=== PATIENT | male | born 1965 | race Caucasian/White ===

== ENCOUNTER → 2017-04-03 | Day surgery (SDC) | payer OTHER ==
[~2017-04-03] VITALS: Ht 185.4 cm; Wt 113.4 kg
--- NOTE | ~2017-04-03 | O ---
[place], [place] OPERATIVE NOTE NAME: REDD RIVAS UNIT #: [id number] ROOM: DOCTOR: BLANCA HAYNES MD BIRTHDATE: [birth year] DOS: GASTROENDOSCOPIC REPORT INDICATION: A 52-year-old patient who presented with chief complaint of history of colonic fistula, status post procedure in [place], detail is unavailable to me. FAMILY HISTORY: Noncontributory. ALLERGIES: No known medication. PAST MEDICAL HISTORY: Hypercholesterolemia. SOCIAL HISTORY: Nonsmoker, nonalcohol consumer. PROCEDURE: Todays' procedure part of investigation is colonoscopy plus multiple polypectomies. PREMEDICATION: Versed and Diprivan. SCOPE: Olympus forward-viewing colonoscope 10L video. REPORT: After putting the patient in the left lateral position and after application of lubricant to rectal pouch and digital examination, scope was introduced. Thereafter, under direct visualization, I advanced through length of colon without difficulty. Polypoid lesion the hepatic flexure with snare was polypectomized and sample was removed. Base of the cecum explored, appendiceal orifice identified and ileocecal valve was defined. Scope was withdrawn back to the rectal pouch and a polypoid lesion in rectal pouch with snare was polypectomized, sample was removed. Air was suctioned out. The patient was extubated, tolerated procedure well. IMPRESSION: Hepatic flexure polyp, status post snare polypectomy; rectal polyp, status post snare polypectomy. There is no evidence of fistula. There is no evidence of banding ligation. PLAN AND DISCUSSION: High fiber diet. ACTIVITY: Ad april. FOLLOWUP: Routinely with you in office, p.r.n. visit with us in [facility]. I thank you very much indeed for your kind referral. [place], [place] OPERATIVE NOTE NAME: REDD RIVAS UNIT #: [id number] ROOM: DOCTOR: BLANCA HAYNES MD BIRTHDATE: [birth year] BLANCA HAYNES MD CM:OPRECORD:OPERATIVE NOTE [id number] BLANCA HAYNES MD 04/03/17 1215 interface
[2017-04-03 09:00] VITALS: BP 109/83
[2017-04-03 09:54] VITALS: BP 109/83
[2017-04-03 10:09] VITALS: BP 103/73
[2017-04-03 10:19] VITALS: BP 116/84
== END ==
LOC: SDC 03-28 11:00
DX: D12.3 Benign neoplasm of transverse colon (principal); K62.1 Rectal polyp; Z87.19 Personal history of other diseases of the digestive system; E78.00 Pure hypercholesterolemia, unspecified